=== PATIENT | male | born 1970 | race Caucasian/White ===

== ENCOUNTER 2017-02-08 14:03 | Emergency (ER) | payer SELFPAY ==
[~2017-02-08] VITALS: Ht 167.6 cm; Wt 76.0 kg
[~2017-02-08 14:03] MED LIST: ACET325T14 PO; AMOX875T PO; HYDR-3240 PO; INSU100V13 SQ-INSULIN; LEVO750T26 PO; SULF1TAB24 PO
[2017-02-08] MEDS ORDERED: HYDROcodone/APAP 5/325 TABLET PO ONE (14:30)
[2017-02-08] MEDS ORDERED: HYDROcodone/APAP 5/325 TABLET ONE (14:52)
[2017-02-08] MEDS ORDERED: INSULIN REGULAR 100 UNITS/ML, 3ML VIAL SQ-INSULIN ONE (15:00)
[2017-02-08] MEDS ORDERED: metFORMIN 500 MG TABLET PO STA (15:00)
[2017-02-08] MEDS ORDERED: EMPA25TA PO (15:03)
[2017-02-08] MEDS ORDERED: LINA1TAB5 PO (15:03)
[2017-02-08] MEDS ORDERED: GLYB5TAB3 PO (15:03)
[2017-02-08] MEDS ORDERED: ATOR20TA9 PO (15:03)
[2017-02-08] MEDS ORDERED: INSULIN REGULAR 100 UNITS/ML, 3ML VIAL ONE (15:15)
[2017-02-08 16:41] VITALS: BP 163/88
== END 2017-02-08 16:44 | disposition home or self-care (01) ==
LOC: ED 15:56
DX: S73.111A Iliofemoral ligament sprain of right hip, initial encounter (principal); E11.65 Type 2 diabetes mellitus with hyperglycemia; Z72.9 Problem related to lifestyle, unspecified; W01.0XXA Fall on same level from slipping, tripping and stumbling without subsequent striking against object, initial encounter; Y93.89 Activity, other specified; Y99.8 Other external cause status; Y92.009 Unspecified place in unspecified non-institutional (private) residence as the place of occurrence of the external cause
CPT/HCPCS: 82962; 96372

== ENCOUNTER 2018-11-14 14:45 | Emergency (ER) | payer OTHER ==
[~2018-11-14] VITALS: Ht 167.6 cm; Wt 91.6 kg
[~2018-11-14 14:45] MED LIST changes: +ATOR20TA37 PO; +EMPA25TA PO; +GLYB5TAB3 PO; +LINA1TAB5 PO
[2018-11-14] MEDS ORDERED: HYDROcodone/APAP 5/325 TABLET ONE (15:27)
[2018-11-14] MEDS ORDERED: HYDROcodone/APAP 5/325 TABLET PO ONE (15:30)
[2018-11-14 16:20] VITALS: BP 179/81
== END 2018-11-14 16:24 | disposition home or self-care (01) ==
LOC: ED 16:15
DX: L03.116 Cellulitis of left lower limb (principal); E11.65 Type 2 diabetes mellitus with hyperglycemia; Z72.9 Problem related to lifestyle, unspecified
CPT/HCPCS: 82962; 99284

== ENCOUNTER → 2018-11-27 | Outpatient (CLI) | payer BC | END | disposition home or self-care (01) | LOC: WOUND 12:45 | PROVIDERS: ATTEND Family Medicine | DX: E11.621 Type 2 diabetes mellitus with foot ulcer (principal); L97.821 Non-pressure chronic ulcer of other part of left lower leg limited to breakdown of skin; E11.65 Type 2 diabetes mellitus with hyperglycemia; E11.21 Type 2 diabetes mellitus with diabetic nephropathy; L84 Corns and callosities; Z89.421 Acquired absence of other right toe(s) | CPT/HCPCS: 97597; 97598; 99214 ==

== ENCOUNTER → 2018-12-04 | Outpatient (CLI) | payer BC | END | disposition home or self-care (01) | LOC: WOUND 13:17 | PROVIDERS: ATTEND Family Medicine | DX: E11.621 Type 2 diabetes mellitus with foot ulcer (principal); L97.821 Non-pressure chronic ulcer of other part of left lower leg limited to breakdown of skin; E11.21 Type 2 diabetes mellitus with diabetic nephropathy; E11.65 Type 2 diabetes mellitus with hyperglycemia; L84 Corns and callosities; Z89.421 Acquired absence of other right toe(s) | CPT/HCPCS: 99214 ==

== ENCOUNTER → 2018-12-18 | Outpatient (CLI) | payer BC | END | disposition home or self-care (01) | LOC: WOUND 13:12 | PROVIDERS: ATTEND Family Medicine | DX: E11.621 Type 2 diabetes mellitus with foot ulcer (principal); L97.528 Non-pressure chronic ulcer of other part of left foot with other specified severity; E11.622 Type 2 diabetes mellitus with other skin ulcer; L97.821 Non-pressure chronic ulcer of other part of left lower leg limited to breakdown of skin; E11.21 Type 2 diabetes mellitus with diabetic nephropathy; E11.65 Type 2 diabetes mellitus with hyperglycemia; L84 Corns and callosities; Z89.421 Acquired absence of other right toe(s) | CPT/HCPCS: 99212 ==

== ENCOUNTER 2019-06-21 14:06 | Outpatient (CLI) | payer BC | END 2019-06-21 23:59 | disposition home or self-care (01) | LOC: WOUND 14:06 | PROVIDERS: ATTEND Internal Medicine | DX: E11.621 Type 2 diabetes mellitus with foot ulcer (principal); L97.528 Non-pressure chronic ulcer of other part of left foot with other specified severity; E11.622 Type 2 diabetes mellitus with other skin ulcer; L97.821 Non-pressure chronic ulcer of other part of left lower leg limited to breakdown of skin; E11.21 Type 2 diabetes mellitus with diabetic nephropathy; E11.65 Type 2 diabetes mellitus with hyperglycemia; L84 Corns and callosities; Z89.421 Acquired absence of other right toe(s) | CPT/HCPCS: 11042; 99215 ==

== ENCOUNTER 2019-06-25 15:22 | Emergency (ER) | payer BC ==
[~2019-06-25] VITALS: Ht 165.1 cm; Wt 93.6 kg
[2019-06-25 15:28] VITALS: BP 147/73
--- NOTE | 2019-06-25 15:42 | NUR ---
LATE ENTRY FOR 1535: PT TO ROOM FROM TRIAGE. AMBULATORY WITH STEADY GAIT.
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
[2019-06-25] MEDS ORDERED: DIPH,PERTUSS(ACELL),TET VAC/PF 0.5 ML IM-VACC ONE ×2 (15:53→16:00)
--- NOTE | 2019-06-25 16:34 | NUR ---
Patient/Caregiver given discharge instructions and they have confirmed that they understand the instructions. Patient ambulatory with steady gait. PT LEFT WITH ALL PERSONAL BELONGINGS.
== END 2019-06-25 16:37 | disposition home or self-care (01) ==
LOC: ED 15:53
DX: S91.331A Puncture wound without foreign body, right foot, initial encounter (principal); W22.8XXA Striking against or struck by other objects, initial encounter; Y93.89 Activity, other specified; Y92.410 Unspecified street and highway as the place of occurrence of the external cause; Y99.8 Other external cause status
CPT/HCPCS: 90471; 90715

== ENCOUNTER 2020-09-26 17:41 | Emergency (ER) | payer BC, OTHER ==
[~2020-09-26] VITALS: Ht 167.6 cm; Wt 91.7 kg
[~2020-09-26 17:41] MED LIST changes: +AZIT250T PO; +CEFD300C37 PO; +ERTA1VIA4 IV; +GABA300C10 PO; +HYDR-1067 PO; -HYDR-3240 PO; +INSU100I7 SQ-INSULIN
[2020-09-26 18:29] LABS: PH, VENOUS 7.404 pH (7.320-7.420)
[2020-09-26 18:30] LABS: BASOPHILS % (AUTO) 1 % (0-1); EOSINOPHILS % (AUTO) 3 % (1-7); LYMPHOCYTES % (AUTO) 17 % (22-44); MEAN CORPUSCULAR HEMOGLOBIN 29.3 pg (27.5-34.5); MEAN CORPUSCULAR HGB CONC 34.1 g/dL (33.2-36.2); MEAN PLATELET VOLUME 8.2 fL (7.4-10.4); MONOCYTES % (AUTO) 9 % (2-9); NEUTROPHILS % (AUTO) 72 % (42-75); PLATELET COUNT 183 x10^3/uL (130-400); RED CELL DISTRIBUTION WIDTH 15.1 % (9.4-14.8)
[2020-09-26] MEDS ORDERED: SODIUM CHLORIDE 0.9% 1,000ML IVBOLUS ONE (18:30)
[2020-09-26 18:34] LABS: MD NO
[2020-09-26 18:41] LABS: ALANINE AMINOTRANSFERASE 28 U/L (12-78); ALBUMIN 2.1 g/dL (3.4-5.0); ANION GAP 6 mmol/L (5-15); CALCIUM 7.9 mg/dL (8.5-10.1); CHLORIDE 102 mmol/L (98-107); CREATININE 1.08 mg/dL (0.7-1.3)
[2020-09-26 18:44] LABS: ALKALINE PHOSPHATASE 206 U/L (45-117); BILIRUBIN,TOTAL 0.5 mg/dL (0.2-1.0); TOTAL PROTEIN 6.3 g/dL (6.4-8.2)
[2020-09-26 19:30] LABS: ACETONE, SERUM Negative (Negative)
[2020-09-26] MEDS ORDERED: INSULIN SINGLE DOSE, ER SQ-INSULIN ONE (19:30)
[2020-09-26 19:34] LABS: MICROSCOPIC AUTO
[2020-09-26] MEDS ORDERED: INSULIN SINGLE DOSE, ER ONE (21:46)
[2020-09-26 21:53] VITALS: BP 166/85
== END 2020-09-26 22:11 | disposition home or self-care (01) ==
LOC: ED 18:11
DX: E11.65 Type 2 diabetes mellitus with hyperglycemia (principal)
CPT/HCPCS: 36415; 80053; 81001; 82010; 82803; 82962; 85025; 96360; 96361; 99283; J1815; J7030